=== PATIENT | female | born 1990 | race Two or more races ===

== ENCOUNTER 2022-12-14 19:13 | Emergency (ER) | payer OTHER ==
[~2022-12-14] VITALS: Ht 165.1 cm; Wt 70.8 kg
[2022-12-14] MEDS ORDERED: NAPRELAN500 M1 PO (21:12)
== END 2022-12-14 21:23 | disposition home or self-care (01) ==
LOC: ER 19:13
DX: S90.31XA Contusion of right foot, initial encounter (principal); X58.XXXA Exposure to other specified factors, initial encounter; Y93.89 Activity, other specified; Y92.488 Other paved roadways as the place of occurrence of the external cause
CPT/HCPCS: 73630; 96372; 99284; J1885